=== PATIENT | female | born 1960 | race Caucasian/White ===

== ENCOUNTER 2016-09-08 16:33 | Emergency (ER) ==
--- NOTE | 2016-09-08 18:18 | PROVIDER DOCUMENTATION ---
HPI-Musculoskeletal Pain/Inj - GENERAL Chief Complaint: Extremity Pain Stated Complaint: LT ARM PAIN Time Seen by Provider: 09/08/16 17:42 Source: patient, family - HX OF PRESENT ILLNESS-MUSKULOSKELTAL Nature of Presenting Problem: 55 year old WF presents with c/o left anterior bicep tenderness, onset three days ago after raking leaves. pt reports she was raking leaves and noticed a pulled muscle sensation to her left bicep. she reports she awoke the next morning with difficulty flexing and extending left elbow due to the pain it causes in the left bicep. pt reports she has been using it very little since onset of pain. pt reports she feels like it is swollen to that region. denies taking any OTC meds, denies numbness, tingling. Quality of Pain: reports: aching, dull Severity in ED: mild Onset/Duration: 3 days ago Timing: still present, intermittent (with flexion/extentio of left elbow), getting worse Any recent injury?: No Locality of Occurance: Home Similar Symptoms Previously?: No Recently seen or treated by another doctor?: No - UPPER EXTREMITY PAIN/INJURY Extremities Pain Location: arm: left ED Hands and Arms: 1 - point tenderness with palpatation, no visual abnormalities, no palpable abnormailities. Context / Method of Injury: reports: other (raking leaves) Associated Symptoms: reports: denies symptoms. denies: muscle spasms, numbness in upper ext, sensory/motor loss, tingling in upper ext, weakness in upper ext Review of Systems - Adult - REVIEW OF SYSTEMS - ADULT Constitutional: reports: no symptoms reported. denies: chills, fever, fatique Eyes: reports: no symptoms reported. denies: discharge, blurred vision, double vision Ears, Nose, Mouth & Throat: reports: no symptoms reported. denies: ear discharge, ear pain, nose pain, loose teeth, throat pain, throat swelling Cardiovascular: reports: no symptoms reported. denies: chest pain, edema, heart murmur, irregular heart rate, orthopnea, palpitations, poor circulation, PND, syncope Respiratory: reports: no symptoms reported. denies: chronic cough, cough, shortness of breath, wheezing Gastrointestinal: reports: no symptoms reported. denies: abdominal pain, diarrhea, nausea, vomiting Genitourinary: reports: no symptoms reported. denies: dysuria, hematuria, urgency Musculoskeletal: reports: see HPI, muscle aches. denies: bone pain, back pain, frequent leg cramps, joint pain, joint swelling, muscle weakness, neck pain Integumentary: reports: no symptoms reported. denies: hives, itching, rash, skin sores/ulcer Neurological: reports: no symptoms reported. denies: dizziness/vertigo, numbness, paresthesia, syncope Psychiatric: reports: no symptoms reported Endocrine: reports: no symptoms reported Hematologic/Lymphatic: reports: no symptoms reported. denies: blood clots, easy bruising, low blood count, prolonged bleeding, swollen lymph nodes, transfusions Allergic/Immunologic: reports: no symptoms reported All Other Systems: Reviewed and Negative Past History - Adult - PAST MEDICAL HISTORY-ADULT Review of Records: reports: Old Records Reviewed, Nursing Assessment Review, Medications Reviewed, Social history reviewed & non-contributory. Major Childhood Illnesses: reports: denies history Cardiovascular: reports: HTN Respiratory: reports: denies history Gastrointestinal: reports: denies history Obstetrical/Gynecological: reports: denies history Genitourinary: reports: denies history Musculoskeletal: reports: denies history Neurological: reports: denies history Endocrine/Immune: reports: denies history Other Conditions: reports: denies history - FAMILY HISTORY Family History: reviewed, not pertinent - SOCIAL HISTORY Smoking: cigarettes Provider spent 3-5 mins advising pt. on dangers of tobacco.: Discussed manners to quit use, and f/u contacts for add'l counseling. Substance Use: none/never Alcohol Use Frequency: never Physical Exam-Injury Related - Physical Exam-Injury Related Initial Vital Signs Reviewed: Yes General Appearance: appears well, alert, no apparent distress. negative: mild distress, moderate distress, severe distress Eyes: pink conjunctivae. negative: conjuctival exudate, pale conjunctivae, sclera injected, scleral icterus, subconjunctival hemorrhage Head, Ears, Nose, Mouth & Throat: normocephalic/atraumatic, moist mucous membranes, normal ENT inspection Neck: non-tender, full range of motion, supple, normal inspection. negative: C- spine tenderness, limited range of motion, pain on movement, tender lateral, tender midline, vertebral point tenderness Respiratory: chest non-tender, lungs clear, normal breath sounds Cardiovascular: normal peripheral pulses, regular rate, rhythm Chest/Breast: deferred Peripheral Pulses: radial (R): 3+, radial (L): 3+ Abdominal Exam: normal bowel sounds, non tender, soft Female Genitalia/Pelvic Exam: deferred Rectal Exam: deferred Hemoccult Exam: deferred Lymphatic: no adenopathy Back Exam: normal inspection, no CVA tenderness, no vertebral tenderness. negative: CVA tenderness, decreased range of motion, swelling, vertebral tenderness Extremity: normal range of motion, normal gait, no pedal edema, no calf tenderness, normal capillary refill, pelvis stable, tenderness (left mid bicep with point tenderness, no surrounding erythema, ecchymosis, full flexion/ extention with pain. circulation/sensation intact. left shoulder with full passive/active ROM with pain.). negative: non-tender, normal inspection, abnormal NV exam, calf tenderness, deformity, erythema, inflammation, joint effusion, pulse deficit, pedal edema, slow capillary refill, swelling Integumentary: normal color, warm/dry Neurologic: grossly normal, no motor/sensory deficits. negative: motor weakness , sensory deficit Psych/Mental Status: normal mood/affect, normal thought content, normal thought process, oriented x 3 - [place]ow Coma Score Best Eye Response ([place]): (4) open spontaneously Best Verbal Response ([place]): (5) oriented Best Motor Response ([place]): (6) obeys commands [place] Total: 15 Progress - PLAN OF CARE/RESULTS Progress/Plan/Lab Results: Orders Category Date Time Status Hydromorphone [Dilaudid] Med 09/08/16 18:19 Discontinued 0.5 mg IM NOW ONE Orphenadrine [Norflex] Med 09/08/16 18:19 Discontinued 60 mg IM NOW ONE Vital Signs - 24 hr 09/08/16 09/08/16 16:42 19:04 Temperature 98.5 F Pulse Rate 93 H 87 Respiratory 18 18 Rate Blood Pressure 172/87 145/87 O2 Sat by Pulse 99 100 Oximetry Departure - Departure Time of Disposition Order: 18:15 DIAGNOSIS: Strain of left biceps muscle Qualifiers: Encounter type: initial encounter Qualified Code(s): S46.212A - Strain of muscle, fascia and tendon of other parts of biceps, left arm, initial encounter Disposition: HOME 01 Certified Medical Emergency: Emergent Condition: Stable Additional Instructions: Follow up wit your primary care doctor. As you mentioned, you can call the number below to receive a list of physicians that are taking new patients or you can follow up with Dr. Rosario. ED Follow Up Instructions: You have been treated by a care provider in the Emergency Department. These instructions are being provided to you so you can have an understanding of how to care for yourself upon discharge. Upon discharge from the Emergency Department, you are responsible for making arrangements for follow-up care by a physician of your choice. Take all prescribed medications as directed. Return to the Emergency Department immediately for any new or worsening symptoms. You may call the Physician Referral phone number at [phone] to obtain a list of Physicians who are taking new patients. Prescriptions: Cyclobenzaprine [Flexeril] 10 mg PO TID #10 tablet Hydrocodone/APAP 5 mg/325 mg [[place]-5] 1 each PO Q6H PRN PRN #5 tablet PRN Reason: left arm pain Referrals: Deborah Randolph MD [Primary Care Provider] - Melissa Rosario MD [STAFF PHYSICIAN] - Forms: Return to School/Parent Work Instructions: Muscle Strain, [id number] Attestation - Physician/ PAN Attestation Patient care was provided by Advanced Practice Provider:: Yes Advanced Practice Provider:: Tigist Montelongo Advanced Practice Provider documentation review:: The Mid-level provider documentation, treatment plan and medical decision making was reviewed by the physician who agrees with all treatment and medical decision making by the MLP.
[2016-09-08] MEDS ORDERED: DILAUDID IM ONE (18:19)
[2016-09-08] MEDS ORDERED: NORFLEX IM ONE (18:19)
[2016-09-08 19:12] VITALS: BP 145/87
== END 2016-09-08 19:10 | disposition home or self-care (01) ==
LOC: ED 16:33
DX: S46.212A Strain of muscle, fascia and tendon of other parts of biceps, left arm, initial encounter (principal); M79.602 Pain in left arm; M79.1 Myalgia; I10 Essential (primary) hypertension; F17.210 Nicotine dependence, cigarettes, uncomplicated; Z71.6 Tobacco abuse counseling; X58.XXXA Exposure to other specified factors, initial encounter; Z79.899 Other long term (current) drug therapy
CPT/HCPCS: 96372; J1170; J2360